=== PATIENT | female | born 1965 | race American Indian/Alaskan Native ===

== ENCOUNTER 2016-09-18 21:14 | Emergency (ER) | payer SELFPAY | END 2016-09-18 21:25 | disposition left against medical advice (07) | LOC: ED 21:14 | DX: Z53.21 Procedure and treatment not carried out due to patient leaving prior to being seen by health care provider (principal) ==

== ENCOUNTER 2016-09-19 15:46 | Emergency (ER) | payer SELFPAY ==
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
[2016-09-19 19:00] VITALS: BP 141/96
== END 2016-09-19 19:02 | disposition home or self-care (01) ==
LOC: ED 15:46
DX: L04.9 Acute lymphadenitis, unspecified (principal); F17.200 Nicotine dependence, unspecified, uncomplicated
CPT/HCPCS: 99282

== ENCOUNTER 2017-05-22 12:50 | Emergency (ER) | payer OTHER ==
[2017-05-22 13:03] VITALS: BP 128/91
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
== END 2017-05-22 17:42 | disposition home or self-care (01) ==
LOC: ED 12:50
DX: M25.541 Pain in joints of right hand (principal); V47.6XXA Car passenger injured in collision with fixed or stationary object in traffic accident, initial encounter; F17.200 Nicotine dependence, unspecified, uncomplicated; Y93.89 Activity, other specified; Y92.89 Other specified places as the place of occurrence of the external cause; Y99.8 Other external cause status
CPT/HCPCS: 99282